=== PATIENT | female | born 1990 | race Caucasian/White ===

== ENCOUNTER 2017-04-22 11:49 | Emergency (ER) | payer OTHER ==
--- NOTE | 2017-04-22 14:27 | EDPHY ---
H & P Time Seen by Provider: 04/22/17 13:13 HPI/ROS: CHIEF COMPLAINT: Abscess left chest wall HISTORY OF PRESENT ILLNESS: 27-year-old female presents to the emergency department with concerns about abscess to the anterior aspect of the left chest wall. She states that she has had pain and swelling for the last few days. No treatment at home. It is becoming increasingly painful. No fevers or difficulty breathing. ROS: No rash. No fever. No breast tenderness. No pain or swelling left axilla. Past Medical/Surgical History: Negative Social History: From [place] Smoking Status: Never smoked Physical Exam: On examination the patient has what appears to be subcutaneous abscess to the left anterior aspect of the chest wall just superior and lateral to her left breast. It does not extend into the left axilla. There is no axillary lymphadenopathy. Full range of motion of upper extremity. The wound does not extend to the breast. Lungs are clear to auscultation with no wheezing, rhonchi or rales. Heart regular rate rhythm without murmur. Constitutional: Initial Vital Signs Temperature (C) 36.5 C 04/22/17 11:58 Heart Rate 58 L 04/22/17 11:58 Respiratory Rate 18 04/22/17 11:58 Blood Pressure 115/73 04/22/17 11:58 O2 Sat (%) 96 04/22/17 11:58 O2 Delivery Mode Room Air Allergies/Adverse Reactions: No Known Allergies Allergy (Unverified 04/22/17 11:58) Home Medications: Medication Instructions Recorded Cephalexin [Keflex] 500 mg PO QID #28 cap 04/22/17 MDM/Departure - MDM Procedures: Procedure: Abscess drainage. The patient's abscess was located on the left anterior chest wall. Risks, benefits, alternatives discussed with the patient and consent obtained. The abscess was incised with a #11 blade and purulent drainage was expressed. The patient tolerated the procedure well. The procedure was performed by myself. ED Course/Re-evaluation: 27-year-old female presents to the emergency department with an abscess to the left anterior chest wall. The wound was opened and purulent material was drained. The patient had immediate relief after incision and drainage. I did give the patient option of applying packing applying warm compresses the patient elected to use warm compresses which I think is reasonable. She was started on oral antibiotics and return if she has any other concerns. - Depart Disposition: Home, Routine, Self-Care Clinical Impression: Sebaceous cyst left chest wall Condition: Good Instructions: Abscess (ED) Additional Instructions: Apply warm compresses or soak wound as discussed. Apply antibiotic ointment daily after bathing. Keflex as directed for 1 week. Return to the emergency department if you develop recurring pain or swelling, if he developed fever, or if you feel worse in any way. 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
[2017-04-22 14:40] VITALS: BP 114/60; PULSE 55; RESP 16; TEMP 98.1; O2SAT 97
== END 2017-04-22 14:40 | disposition home or self-care (01) ==
PROC: 0H95XZZ Drainage of Chest Skin, External Approach (ICD-10-PCS; principal; 2017-04-22)
DX: L72.3 Sebaceous cyst (principal)